=== PATIENT | female | born 1970 ===

== ENCOUNTER 2024-03-25 05:38 | Day surgery (SDC) | payer OTHER ==
[~2024-03-25 05:38] MED LIST: CALTRATE+D3 PL1 EAC1 PO; CENTRUM ADULTS1 EACH PO; LEVO-T25 MCG PO; ROSUVASTATIN CA20 MG PO
[2024-03-25] MEDS ORDERED: CEFTRIAXONE SODIUM 2,000 MG VIAL IV ONE (10:15)
[2024-03-25] MEDS ORDERED: DIBUCAINE 30 GM TUBE RECTAL ONE (10:30)
[2024-03-25] MEDS ORDERED: BUPIVACAINE HCL 30 ML VIAL IJ ONE (10:30)
[2024-03-25] MEDS ORDERED: LIDOCAINE HCL 1%/EPINEPHRINE 20ML VIAL IJ ONE (10:30)
[2024-03-25] MEDS ORDERED: POVIDONE-IODINE 118 ML BOTT TOP ONE (10:30)
[2024-03-25] MEDS ORDERED: METRONIDAZOLE/SODIUM CHLORIDE 500 MG/100 ML PIGGYBACK IV ONE ×2 (10:30)
[2024-03-25] MEDS ORDERED: HEMOSTATIC MATRIX 1 KIT KIT TOP ONE (10:30)
== END 2024-03-25 16:05 | disposition home or self-care (01) ==
LOC: CIR.AMB 05:38
PROVIDERS: ATTEND Colon & Rectal Surgery
DX: K64.2 Third degree hemorrhoids (principal); K64.4 Residual hemorrhoidal skin tags; K64.8 Other hemorrhoids; Z91.040 Latex allergy status